=== PATIENT | male | born 1950 | race Caucasian/White ===

== ENCOUNTER → 2016-07-11 | Outpatient (CLI) | payer MEDICARE ==
[2016-07-11 15:21] LABS: ALT 73 U/L (21-72); Anion Gap 12 mmol/L; Blood Urea Nitrogen 28 mg/dL (9-20); C Reactive Protein 10.5 mg/L (<10.0); Calcium 9.7 mg/dL (8.4-10.2); Carbon Dioxide 27 mmol/L (22-30); Chloride 102 mmol/L (98-107); Glucose 96 mg/dL (74-99); Non-African American GFR(MDRD) >60 (>60 ml/min/1.73 sqM); Potassium 4.4 mmol/L (3.5-5.1); Sodium 141 mmol/L (137-145); Uric Acid 6.1 mg/dL (3.5-8.5)
[2016-07-11 15:22] LABS: Basophils % (A) 0 %; CH 32.8; CHCM 34.3; Eosinophils # (A) 0.1 k/uL (0-0.7); Eosinophils % (A) 2 %; HCT 50.8 % (39.0-53.0); HDW 2.57; Luc # (Auto) 0.18; Luc % (Auto) 3; Lymphocytes # (A) 1.6 k/uL (1.0-4.8); Lymphocytes % (A) 26 %; MCH 32.3 pg (25.0-35.0); MCHC 33.6 g/dL (31.0-37.0); MCV 96.2 fL (80.0-100.0); Mean Platelet Volume 7.3; Monocytes # (A) 0.4 k/uL (0-1.0); Monocytes % (A) 6 %; Neutrophils # (A) 4.1 k/uL (1.3-7.7); Neutrophils % (A) 64 %; RBC 5.28 m/uL (4.30-5.90); RDW 12.6 % (11.5-15.5); WBC 6.4 k/uL (3.8-10.6); WBC (Perox) 6.51
[2016-07-11 17:36] LABS: Erythrocyte Sedimentation Rate 10 mm/hr (0-15)
[2016-07-12 00:37] LABS: AST 66 U/L (17-59)
== END | disposition home or self-care (01) ==
LOC: LABWHC1 14:24
PROVIDERS: ATTEND Internal Medicine Rheumatology
DX: M10.9 Gout, unspecified (principal)
CPT/HCPCS: 36415; 80048; 84450; 84460; 84550; 85025; 85652; 86140

== ENCOUNTER → 2016-10-08 | Outpatient (CLI) | payer MEDICARE ==
[2016-10-08 11:55] LABS: Basophils % (A) 0 %; CH 32.9; Eosinophils # (A) 0.2 k/uL (0-0.7); Eosinophils % (A) 4 %; HCT 52.4 % (39.0-53.0); HDW 2.57; HGB 17.4 gm/dL (13.0-17.5); Luc # (Auto) 0.15; Luc % (Auto) 3; Lymphocytes # (A) 1.8 k/uL (1.0-4.8); Lymphocytes % (A) 30 %; MCH 32.3 pg (25.0-35.0); MCHC 33.2 g/dL (31.0-37.0); MCV 97.5 fL (80.0-100.0); Mean Platelet Volume 7.5; Monocytes # (A) 0.3 k/uL (0-1.0); Monocytes % (A) 5 %; Neutrophils # (A) 3.5 k/uL (1.3-7.7); Neutrophils % (A) 58 %; RBC 5.37 m/uL (4.30-5.90); RDW 12.9 % (11.5-15.5); WBC (Perox) 6.01
[2016-10-08 12:14] LABS: ALT 94 U/L (21-72); AST 85 U/L (17-59); Anion Gap 9 mmol/L; Blood Urea Nitrogen 25 mg/dL (9-20); C Reactive Protein <5.0 mg/L (<10.0); Calcium 9.6 mg/dL (8.4-10.2); Carbon Dioxide 30 mmol/L (22-30); Chloride 102 mmol/L (98-107); Glucose 142 mg/dL (74-99); Non-African American GFR(MDRD) >60 (>60 ml/min/1.73 sqM); Potassium 4.2 mmol/L (3.5-5.1); Sodium 141 mmol/L (137-145); Uric Acid 5.4 mg/dL (3.5-8.5)
[2016-10-08 14:07] LABS: Erythrocyte Sedimentation Rate 6 mm/hr (0-15)
== END ==
LOC: LABWHC1 11:35
PROVIDERS: ATTEND Internal Medicine Rheumatology
DX: M10.09 Idiopathic gout, multiple sites (principal)
CPT/HCPCS: 36415; 80048; 84450; 84460; 84550; 85025; 85652; 86140

== ENCOUNTER → 2016-10-15 | Outpatient (CLI) | payer MEDICARE ==
[2016-10-15 11:42] LABS: ALT 92 U/L (21-72); AST 77 U/L (17-59); Alkaline Phosphatase 56 U/L (38-126); Anion Gap 9 mmol/L; Blood Urea Nitrogen 20 mg/dL (9-20); Calcium 9.7 mg/dL (8.4-10.2); Carbon Dioxide 26 mmol/L (22-30); Chloride 102 mmol/L (98-107); Cholesterol 172 mg/dL (<200); Glucose 123 mg/dL (74-99); HDL Cholesterol 36 mg/dL (40-60); Non-African American GFR(MDRD) >60 (>60 ml/min/1.73 sqM); Potassium 4.8 mmol/L (3.5-5.1); Sodium 137 mmol/L (137-145); Total Bilirubin 1.2 mg/dL (0.2-1.3); Total Protein 7.6 g/dL (6.3-8.2)
[2016-10-15 11:51] LABS: Triglycerides 838 mg/dL (<150)
== END | disposition home or self-care (01) ==
LOC: LABWHC1 11:02
PROVIDERS: ATTEND Family Medicine
DX: I10 Essential (primary) hypertension (principal); R74.0 Nonspecific elevation of levels of transaminase and lactic acid dehydrogenase [LDH]; N52.9 Male erectile dysfunction, unspecified; M10.00 Idiopathic gout, unspecified site; R73.01 Impaired fasting glucose; L40.8 Other psoriasis; E29.1 Testicular hypofunction; D75.1 Secondary polycythemia; D84.9 Immunodeficiency, unspecified
CPT/HCPCS: 36415; 80053; 80061

== ENCOUNTER → 2016-12-21 | Outpatient (CLI) | payer MEDICARE ==
[2016-12-21 11:00] LABS: Basophils % (A) 1 %; CH 32.9; CHCM 34.7; Eosinophils # (A) 0.2 k/uL (0-0.7); Eosinophils % (A) 3 %; HCT 51.9 % (39.0-53.0); HGB 17.9 gm/dL (13.0-17.5); Luc # (Auto) 0.14; Luc % (Auto) 2; Lymphocytes # (A) 1.7 k/uL (1.0-4.8); Lymphocytes % (A) 25 %; MCH 32.9 pg (25.0-35.0); MCHC 34.5 g/dL (31.0-37.0); MCV 95.2 fL (80.0-100.0); Mean Platelet Volume 7.4; Monocytes # (A) 0.4 k/uL (0-1.0); Monocytes % (A) 6 %; Neutrophils # (A) 4.3 k/uL (1.3-7.7); Neutrophils % (A) 64 %; RBC 5.46 m/uL (4.30-5.90); RDW 12.8 % (11.5-15.5); WBC 6.8 k/uL (3.8-10.6); WBC (Perox) 6.79
[2016-12-21 11:28] LABS: ALT 80 U/L (21-72); AST 76 U/L (17-59); Anion Gap 11 mmol/L; Blood Urea Nitrogen 30 mg/dL (9-20); C Reactive Protein 7.1 mg/L (<10.0); Calcium 9.9 mg/dL (8.4-10.2); Carbon Dioxide 26 mmol/L (22-30); Chloride 103 mmol/L (98-107); Glucose 108 mg/dL (74-99); Non-African American GFR(MDRD) >60 (>60 ml/min/1.73 sqM); Potassium 5.1 mmol/L (3.5-5.1); Sodium 140 mmol/L (137-145); Uric Acid 5.3 mg/dL (3.5-8.5)
[2016-12-21 12:09] LABS: Erythrocyte Sedimentation Rate 3 mm/hr (0-15)
== END | disposition home or self-care (01) ==
LOC: LABWHC1 10:11
PROVIDERS: ATTEND Physician Assistant
DX: M10.9 Gout, unspecified (principal)
CPT/HCPCS: 36415; 80048; 84450; 84460; 84550; 85025; 85652; 86140

== ENCOUNTER → 2017-02-27 | Outpatient (CLI) | payer MEDICARE ==
--- NOTE | 2017-02-27 21:17 | CONS ---
CONSULTATION DATE OF SERVICE: 02/27/2017 This patient is a 66-year-old gentleman who has been evaluated in the sleep center for possible obstructive sleep apnea-hypopnea syndrome. The patient was referred from [facility]. He is getting his DOT card. HISTORY OF PRESENT ILLNESS/SLEEP-WAKE EVALUATION: Patient's usual sleep schedule is from 11:30 p.m. until 8 a.m. basically 7 days per week. No problem with falling asleep. No complaints about his sleep environment. No TV in bedroom. The patient prefers to sleep on the side position. According to patient, he does not snore and does not wake from sleep and does not feel any sleepiness during the day. [place] Sleepiness Scale is 0. He does not take any naps, but he drinks 3 coffees a day. PAST MEDICAL HISTORY: Positive for psoriasis. MEDICATIONS: Patient is getting quarterly injections of Stelara for treatment of psoriasis. SOCIAL HISTORY: Negative for smoking. Alcohol consumption very rarely. FAMILY HISTORY: Patient does not know family history. Patient's dad in late 70s. PAST SURGICAL HISTORY: None. REVIEW OF SYSTEMS: Basically negative except some skin problems related to the psoriasis. PHYSICAL EXAMINATION: The patient is a pleasant 66-year-old gentleman without distress. VITAL SIGNS: BP 158/97, HR 84, RR 16, height 5 feet 11 inches, weight 243, BMI 33.8. Neck is 17-1/4 inches in circumference. Temperature 98.1. Oxygen saturation at room air 95%. HEENT: PERRLA, EOMI. Evaluation of oropharynx showed tongue protrudes midline; moderately low position of soft palate. Retrognathia 2 to 3 mm. Slight restriction of nasal breathing. NECK: Supple. No JVD. Thyroid is not palpable. LUNGS: Clear to percussion and to auscultation. Good air exchange. No wheezing or rhonchi. HEART: S1, S2 with some irregularities. Slight systolic murmur. ABDOMEN: Obese. EXTREMITIES: Some hyperpigmentation of skin over his hands and legs. [employer]ED [employer]ER: Awake, alert and oriented x3. Cranial nerves 2 to 7 intact. There is no fasciculation or atrophy noted. No focal deficits observed. IMPRESSION: 1. Wide neck; 17-1/4 inches in circumference, low position of soft palate, retrognathia of several millimeters, obesity; possible obstructive sleep apnea- hypopnea syndrome. 2. Obesity; BMI 33.8. 3. Slight restriction of nasal breathing. 4. Psoriasis. 5. Patient is a garbage truck helper for short distances in [place], referred for evaluation by [facility] before getting DOT card. PLAN: 1. Polysomnography for evaluation of patient's breathing during sleep. 2. CPAP/BiPAP titration if sleep study confirms obstructive sleep apnea-hypopnea syndrome. 3. Preferable position during sleep on the side. 4. No driving if patient feels any sleepiness. Patient is aware of civil and criminal liability for unsafe driving. 5. I will see patient for follow-up visit to explain results of testing and following plan. Thank you very much for referring this patient for consultation. Sincerely, Keith Padilla MD, PhD, FAASM Diplomat of [place] [employer] [place] [employer] Inspector of [facility] [place] MMODL / [place]: [id number] /
== END | disposition home or self-care (01) ==
LOC: SLEEP 14:24
PROVIDERS: ATTEND Internal Medicine
DX: E66.9 Obesity, unspecified (principal); L40.9 Psoriasis, unspecified; Z68.33 Body mass index [BMI] 33.0-33.9, adult
CPT/HCPCS: 99211

== ENCOUNTER → 2017-03-21 | Outpatient (CLI) | payer MEDICARE ==
[2017-03-21 13:05] LABS: Basophils # (A) 0.1 k/uL (0-0.2); Basophils % (A) 1 %; CH 31.6; CHCM 32.7; Eosinophils # (A) 0.2 k/uL (0-0.7); Eosinophils % (A) 3 %; HCT 54.5 % (39.0-53.0); HDW 2.38; HGB 17.8 gm/dL (13.0-17.5); Luc # (Auto) 0.24; Luc % (Auto) 4; Lymphocytes # (A) 1.8 k/uL (1.0-4.8); Lymphocytes % (A) 28 %; MCH 31.7 pg (25.0-35.0); MCHC 32.6 g/dL (31.0-37.0); MCV 97.2 fL (80.0-100.0); Mean Platelet Volume 7.3; Monocytes # (A) 0.5 k/uL (0-1.0); Monocytes % (A) 7 %; Neutrophils # (A) 3.6 k/uL (1.3-7.7); Neutrophils % (A) 57 %; RBC 5.61 m/uL (4.30-5.90); RDW 12.9 % (11.5-15.5); WBC 6.3 k/uL (3.8-10.6); WBC (Perox) 6.18
[2017-03-21 15:00] LABS: ALT 84 U/L (21-72); AST 72 U/L (17-59); Anion Gap 9 mmol/L; Blood Urea Nitrogen 30 mg/dL (9-20); Calcium 10.3 mg/dL (8.4-10.2); Carbon Dioxide 29 mmol/L (22-30); Chloride 103 mmol/L (98-107); Glucose 103 mg/dL (74-99); Non-African American GFR(MDRD) >60 (>60 ml/min/1.73 sqM); Potassium 5.1 mmol/L (3.5-5.1); Sodium 141 mmol/L (137-145); Uric Acid 5.3 mg/dL (3.5-8.5)
[2017-03-21 15:19] LABS: C Reactive Protein 12.1 mg/L (<10.0)
[2017-03-21 17:27] LABS: Erythrocyte Sedimentation Rate 7 mm/hr (0-15)
== END | disposition home or self-care (01) ==
LOC: LABWHC1 12:19
PROVIDERS: ATTEND Physician Assistant
DX: M10.9 Gout, unspecified (principal)
CPT/HCPCS: 36415; 80048; 84450; 84460; 84550; 85025; 85652; 86140

== ENCOUNTER → 2017-06-06 | Outpatient (CLI) | payer MEDICARE ==
[2017-06-07 14:47] LABS: ALT 77 U/L (21-72); AST 71 U/L (17-59); Anion Gap 10 mmol/L; Blood Urea Nitrogen 30 mg/dL (9-20); C Reactive Protein 5.4 mg/L (<10.0); Calcium 10.1 mg/dL (8.4-10.2); Carbon Dioxide 28 mmol/L (22-30); Chloride 102 mmol/L (98-107); Glucose 96 mg/dL (74-99); Potassium 4.9 mmol/L (3.5-5.1); Sodium 140 mmol/L (137-145); Uric Acid 6.1 mg/dL (3.5-8.5)
[2017-06-07 15:50] LABS: Erythrocyte Sedimentation Rate 4 mm/hr (0-15)
[2017-06-07 15:58] LABS: Basophils # (A) 0.1 k/uL (0-0.2); Basophils % (A) 1 %; Eosinophils # (A) 0.2 k/uL (0-0.7); Eosinophils % (A) 3 %; HCT 53.4 % (39.0-53.0); HGB 17.5 gm/dL (13.0-17.5); Lymphocytes # (A) 1.8 k/uL (1.0-4.8); Lymphocytes % (A) 25 %; MCH 32.1 pg (25.0-35.0); MCHC 32.7 g/dL (31.0-37.0); Mean Platelet Volume 9.1; Monocytes # (A) 0.4 k/uL (0-1.0); Monocytes % (A) 6 %; Neutrophils # (A) 4.6 k/uL (1.3-7.7); Neutrophils % (A) 64 %; Platelet Count 179 k/uL (150-450); RBC 5.45 m/uL (4.30-5.90); RDW 13.4 % (11.5-15.5); WBC 7.2 k/uL (3.8-10.6)
== END | disposition home or self-care (01) ==
LOC: LABWHC1 11:23
PROVIDERS: ATTEND Physician Assistant
DX: M10.9 Gout, unspecified (principal)
CPT/HCPCS: 36415; 80048; 84450; 84460; 84550; 85025; 85652; 86140

== ENCOUNTER → 2017-09-09 | Outpatient (CLI) | payer MEDICARE ==
[2017-09-09 11:26] LABS: ALT 81 U/L (21-72); AST 86 U/L (17-59); Albumin 4.1 g/dL (3.5-5.0); Alkaline Phosphatase 53 U/L (38-126); Anion Gap 12 mmol/L; Blood Urea Nitrogen 24 mg/dL (9-20); C Reactive Protein <5.0 mg/L (<10.0); Calcium 9.7 mg/dL (8.4-10.2); Carbon Dioxide 28 mmol/L (22-30); Chloride 101 mmol/L (98-107); Cholesterol 145 mg/dL (<200); Glucose 113 mg/dL (74-99); HDL Cholesterol 53 mg/dL (40-60); LDL Cholesterol,Calculated 26 mg/dL (0-99); Sodium 141 mmol/L (137-145); Total Bilirubin 1.1 mg/dL (0.2-1.3); Triglycerides 330 mg/dL (<150); Uric Acid 5.2 mg/dL (3.5-8.5)
[2017-09-09 11:45] LABS: Basophils % (A) 1 %; Eosinophils # (A) 0.2 k/uL (0-0.7); Eosinophils % (A) 2 %; HCT 46.2 % (39.0-53.0); HGB 16.1 gm/dL (13.0-17.5); Lymphocytes % (A) 30 %; MCH 32.2 pg (25.0-35.0); Mean Platelet Volume 7.2; Monocytes # (A) 0.4 k/uL (0-1.0); Monocytes % (A) 7 %; Neutrophils # (A) 3.7 k/uL (1.3-7.7); Neutrophils % (A) 57 %; Platelet Count 169 k/uL (150-450); RBC 5.02 m/uL (4.30-5.90); RDW 12.1 % (11.5-15.5); WBC 6.5 k/uL (3.8-10.6)
[2017-09-09 13:19] LABS: Erythrocyte Sedimentation Rate 5 mm/hr (0-15)
== END | disposition home or self-care (01) ==
LOC: LABWHC1 10:48
PROVIDERS: ATTEND Internal Medicine Rheumatology
DX: I10 Essential (primary) hypertension (principal); M1A.00X0 Idiopathic chronic gout, unspecified site, without tophus (tophi); E78.00 Pure hypercholesterolemia, unspecified
CPT/HCPCS: 36415; 80053; 80061; 84403; 84550; 85025; 85652; 86140

== ENCOUNTER → 2017-12-11 | Outpatient (CLI) | payer MEDICARE ==
[2017-12-11 11:40] LABS: Basophils % (A) 1 %; Eosinophils # (A) 0.2 k/uL (0-0.7); Eosinophils % (A) 3 %; HCT 50.7 % (39.0-53.0); HGB 16.6 gm/dL (13.0-17.5); Lymphocytes # (A) 1.9 k/uL (1.0-4.8); Lymphocytes % (A) 29 %; MCH 31.7 pg (25.0-35.0); MCHC 32.8 g/dL (31.0-37.0); MCV 96.9 fL (80.0-100.0); Mean Platelet Volume 7.3; Monocytes # (A) 0.4 k/uL (0-1.0); Monocytes % (A) 7 %; Neutrophils # (A) 3.8 k/uL (1.3-7.7); Neutrophils % (A) 58 %; Platelet Count 185 k/uL (150-450); RBC 5.24 m/uL (4.30-5.90); WBC 6.5 k/uL (3.8-10.6)
[2017-12-11 12:00] LABS: C Reactive Protein 5.7 mg/L (<10.0); Calcium 9.8 mg/dL (8.4-10.2); Potassium 4.4 mmol/L (3.5-5.1); Uric Acid 5.7 mg/dL (3.5-8.5)
[2017-12-11 12:51] LABS: Erythrocyte Sedimentation Rate 4 mm/hr (0-15)
== END | disposition home or self-care (01) ==
LOC: LABWHC1 11:00
PROVIDERS: ATTEND Internal Medicine Rheumatology
DX: M10.9 Gout, unspecified (principal)
CPT/HCPCS: 36415; 80048; 84450; 84460; 84550; 85025; 85652; 86140

== ENCOUNTER → 2018-01-12 | Outpatient (CLI) | payer MEDICARE ==
[2018-01-12 14:00] LABS: ALT 96 U/L (21-72); AST 86 U/L (17-59)
== END | disposition home or self-care (01) ==
LOC: LABWHC1 13:07
PROVIDERS: ATTEND Dermatology Procedural Dermatology
DX: L40.0 Psoriasis vulgaris (principal)
CPT/HCPCS: 36415; 84450; 84460

== ENCOUNTER → 2018-02-06 | Outpatient (CLI) | payer MEDICARE ==
[2018-02-06 15:19] LABS: ALT 99 U/L (21-72); AST 96 U/L (17-59); Anion Gap 9 mmol/L; Blood Urea Nitrogen 41 mg/dL (9-20); C Reactive Protein <5.0 mg/L (<10.0); Carbon Dioxide 26 mmol/L (22-30); Chloride 102 mmol/L (98-107); Glucose 142 mg/dL (74-99); Potassium 4.4 mmol/L (3.5-5.1); Sodium 137 mmol/L (137-145); Uric Acid 6.2 mg/dL (3.5-8.5)
[2018-02-06 15:24] LABS: Basophils % (A) 0 %; Eosinophils # (A) 0.1 k/uL (0-0.7); Eosinophils % (A) 2 %; HCT 46.8 % (39.0-53.0); Lymphocytes # (A) 1.9 k/uL (1.0-4.8); Lymphocytes % (A) 24 %; MCHC 34.2 g/dL (31.0-37.0); MCV 93.3 fL (80.0-100.0); Mean Platelet Volume 7.4; Monocytes # (A) 0.4 k/uL (0-1.0); Monocytes % (A) 6 %; Neutrophils # (A) 5.4 k/uL (1.3-7.7); Neutrophils % (A) 67 %; Platelet Count 161 k/uL (150-450); RBC 5.01 m/uL (4.30-5.90); RDW 12.4 % (11.5-15.5)
[2018-02-06 16:53] LABS: Erythrocyte Sedimentation Rate 14 mm/hr (0-15)
== END | disposition home or self-care (01) ==
LOC: LABWHC1 14:32
PROVIDERS: ATTEND Nurse Practitioner Family
DX: L40.0 Psoriasis vulgaris (principal)
CPT/HCPCS: 36415; 80048; 84450; 84460; 84550; 85025; 85652; 86140

== ENCOUNTER → 2018-02-27 | Outpatient (CLI) | payer MEDICARE ==
[2018-02-27 13:34] LABS: Basophils % (A) 1 %; Eosinophils # (A) 0.2 k/uL (0-0.7); Eosinophils % (A) 3 %; HCT 42.5 % (39.0-53.0); HGB 14.4 gm/dL (13.0-17.5); Lymphocytes # (A) 1.9 k/uL (1.0-4.8); Lymphocytes % (A) 26 %; MCH 31.4 pg (25.0-35.0); MCHC 33.7 g/dL (31.0-37.0); MCV 93.2 fL (80.0-100.0); Mean Platelet Volume 7.4; Monocytes # (A) 0.4 k/uL (0-1.0); Monocytes % (A) 6 %; Neutrophils # (A) 4.7 k/uL (1.3-7.7); Neutrophils % (A) 63 %; Platelet Count 188 k/uL (150-450); RBC 4.57 m/uL (4.30-5.90); RDW 12.7 % (11.5-15.5); WBC 7.5 k/uL (3.8-10.6)
[2018-02-27 14:00] LABS: C Reactive Protein 5.1 mg/L (<10.0); Calcium 10.3 mg/dL (8.4-10.2); Potassium 5.2 mmol/L (3.5-5.1); Uric Acid 6.2 mg/dL (3.5-8.5)
[2018-02-27 14:51] LABS: Erythrocyte Sedimentation Rate 21 mm/hr (0-15)
== END | disposition home or self-care (01) ==
LOC: LABWHC1 12:58
PROVIDERS: ATTEND Internal Medicine Rheumatology
DX: M10.09 Idiopathic gout, multiple sites (principal)
CPT/HCPCS: 36415; 80048; 84450; 84460; 84550; 85025; 85652; 86140

== ENCOUNTER → 2018-08-27 | Outpatient (CLI) | payer MEDICARE ==
[2018-08-27 14:24] LABS: Basophils # (A) 0.1 k/uL (0-0.2); Basophils % (A) 1 %; Eosinophils # (A) 0.3 k/uL (0-0.7); Eosinophils % (A) 4 %; HCT 44.4 % (39.0-53.0); HGB 14.5 gm/dL (13.0-17.5); Lymphocytes # (A) 2.1 k/uL (1.0-4.8); Lymphocytes % (A) 30 %; MCH 31.5 pg (25.0-35.0); MCHC 32.6 g/dL (31.0-37.0); MCV 96.7 fL (80.0-100.0); Mean Platelet Volume 7.4; Monocytes # (A) 0.4 k/uL (0-1.0); Monocytes % (A) 6 %; Neutrophils # (A) 4.2 k/uL (1.3-7.7); Neutrophils % (A) 58 %; Platelet Count 154 k/uL (150-450); RBC 4.59 m/uL (4.30-5.90); RDW 13.2 % (11.5-15.5); WBC 7.3 k/uL (3.8-10.6)
[2018-08-27 17:08] LABS: Erythrocyte Sedimentation Rate 23 mm/hr (0-15)
[2018-08-27 18:18] LABS: ALT 79 U/L (10-49); AST 90 U/L (14-35); C Reactive Protein <0.4 mg/dL (0.0-0.8); Calcium 9.8 mg/dL (8.7-10.3); Carbon Dioxide 25.6 mmol/L (21.6-31.8); Chloride 103 mmol/L (96-109); Glucose 112 mg/dL (70-110); Potassium 4.2 mmol/L (3.5-5.5); Sodium 137 mmol/L (135-145); Uric Acid 6.8 mg/dL (3.7-8.7)
== END ==
LOC: LABWHC1 13:35
PROVIDERS: ATTEND Internal Medicine Rheumatology
DX: M10.09 Idiopathic gout, multiple sites (principal)
CPT/HCPCS: 36415; 80048; 84450; 84460; 84550; 85025; 85652; 86140

== ENCOUNTER → 2018-10-17 | Outpatient (CLI) | payer MEDICARE ==
[2018-10-17 09:59] LABS: Basophils % (A) 0 %; Eosinophils # (A) 0.2 k/uL (0-0.7); Eosinophils % (A) 2 %; HCT 41.3 % (39.0-53.0); HGB 13.7 gm/dL (13.0-17.5); Lymphocytes # (A) 1.6 k/uL (1.0-4.8); Lymphocytes % (A) 15 %; MCH 31.8 pg (25.0-35.0); MCHC 33.3 g/dL (31.0-37.0); MCV 95.5 fL (80.0-100.0); Mean Platelet Volume 6.7; Monocytes # (A) 0.6 k/uL (0-1.0); Monocytes % (A) 6 %; Neutrophils # (A) 7.8 k/uL (1.3-7.7); Neutrophils % (A) 74 %; Platelet Count 170 k/uL (150-450); RBC 4.33 m/uL (4.30-5.90); RDW 12.8 % (11.5-15.5); WBC 10.5 k/uL (3.8-10.6)
[2018-10-17 12:59] LABS: Erythrocyte Sedimentation Rate 21 mm/hr (0-15)
[2018-10-17 17:28] LABS: Anion Gap 11.9 mmol/L (4.00-12.00); Calcium 9.8 mg/dL (8.7-10.3); Carbon Dioxide 26.1 mmol/L (21.6-31.8); Potassium 4.6 mmol/L (3.5-5.5); Uric Acid 7.3 mg/dL (3.7-8.7)
== END | disposition home or self-care (01) ==
LOC: LABWHC1 09:25
PROVIDERS: ATTEND Internal Medicine Rheumatology
DX: M10.09 Idiopathic gout, multiple sites (principal)
CPT/HCPCS: 36415; 80048; 84450; 84460; 84550; 85025; 85652; 86140

== ENCOUNTER → 2018-11-26 | Outpatient (CLI) | payer MEDICARE ==
[2018-11-26 14:44] LABS: Basophils % (A) 1 %; Eosinophils # (A) 0.2 k/uL (0-0.7); Eosinophils % (A) 2 %; HCT 46.3 % (39.0-53.0); HGB 15.5 gm/dL (13.0-17.5); Lymphocytes # (A) 2.1 k/uL (1.0-4.8); Lymphocytes % (A) 28 %; MCH 32.2 pg (25.0-35.0); MCHC 33.4 g/dL (31.0-37.0); MCV 96.3 fL (80.0-100.0); Mean Platelet Volume 6.9; Monocytes # (A) 0.4 k/uL (0-1.0); Monocytes % (A) 5 %; Neutrophils # (A) 4.6 k/uL (1.3-7.7); Neutrophils % (A) 62 %; Platelet Count 193 k/uL (150-450); RDW 12.3 % (11.5-15.5); WBC 7.4 k/uL (3.8-10.6)
[2018-11-26 16:02] LABS: Erythrocyte Sedimentation Rate 18 mm/hr (0-15)
[2018-11-26 19:07] LABS: ALT 89 U/L (10-49); AST 97 U/L (14-35); African American GFR (CKD) 89.2 (60.0-200.0); C Reactive Protein <0.4 mg/dL (0.0-0.8); Calcium 9.8 mg/dL (8.7-10.3); Carbon Dioxide 24.6 mmol/L (21.6-31.8); Chloride 99 mmol/L (96-109); Glucose 105 mg/dL (70-110); Potassium 4.4 mmol/L (3.5-5.5); Sodium 135 mmol/L (135-145)
[2018-11-26 19:13] LABS: Uric Acid 6.2 mg/dL (3.7-8.7)
== END | disposition home or self-care (01) ==
LOC: LABWHC1 13:48
PROVIDERS: ATTEND Internal Medicine Rheumatology
DX: M10.09 Idiopathic gout, multiple sites (principal)
CPT/HCPCS: 36415; 80048; 84450; 84460; 84550; 85025; 85652; 86140